=== PATIENT | male | born 1970 | race Caucasian/White ===

== ENCOUNTER 2017-03-14 10:51 | Observation (INO) | payer BC ==
[2017-03-14] MEDS ORDERED: Sodium Chloride 0.9% 1,000 ML IV ONE ×2 (11:00→12:05)
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
--- NOTE | 2017-03-14 11:34 | CR ---
EXAMINATION: Portable chest radiograph. HISTORY: Injury. FINDINGS: The trachea is midline. The cardiomediastinal silhouette is within normal limits. No pulmonary infilt rates, effusions or pneumothorax. Osseous structures appear unremarkable. IMPRESSION: No acute cardiopulmonary process.
[2017-03-14 11:49] LABS: CHLORIDE,CL 111 mmol/L (98-110); SODIUM,NA 142 mmol/L (136-146)
[2017-03-14] MEDS ORDERED: Acetaminophen 325 MG Tab PO PRN (12:47)
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
[2017-03-14] MEDS: Sodium Chloride 0.9% 1,000 ML IV SCH ×2 (16:30→22:23)
[2017-03-15] MEDS: Sodium Chloride 0.9% 1,000 ML IV SCH (04:05)
[2017-03-15 05:46] LABS: CHLORIDE,CL 112 mmol/L (98-110); SODIUM,NA 142 mmol/L (136-146)
== END 2017-03-15 09:00 | disposition home or self-care (01) ==
LOC: MW.ED 10:51 → MW.MS 12:25
PROVIDERS: ADMIT Internal Medicine; ATTEND Internal Medicine
DX: M62.82 Rhabdomyolysis (principal); I10 Essential (primary) hypertension; F17.210 Nicotine dependence, cigarettes, uncomplicated; Z98.890 Other specified postprocedural states
CPT/HCPCS: 36415; 71010; 80048; 80053; 80305; 81001; 82550; 82553; 83735; 84484; 85025; 85610; 93005; 96360; 96361; 99284; G0378; J7040